=== PATIENT | female | born 1965 | race Caucasian/White ===

== ENCOUNTER 2016-06-29 20:28 | Emergency (ER) | payer BC ==
[~2016-06-29] VITALS: Ht 162.6 cm; Wt 44.7 kg
[2016-06-29 20:28] VITALS: BP 145/93; PULSE 90; RESP 16; TEMP 97.8; O2SAT 98; Ht 162.6 cm; Wt 44.7 kg
--- NOTE | 2016-06-29 20:45 | NUR ---
PROVIDER Cathy RUIZ SATELLITE MANAGER IN TO SEE PATIENT.
[2016-06-29] MEDS ORDERED: MONT10TA22 PO (21:02)
[2016-06-29] MEDS ORDERED: FLUT9.9S EA NOSTRIL (21:02)
[2016-06-29] MEDS ORDERED: LORA10TA62 PO (21:02)
[2016-06-29] MEDS ORDERED: ALBU6.7H INH (21:02)
--- NOTE | 2016-06-29 21:02 | ERPDOC ---
Departure Disposition Decision Date: Jun 29, 2016 Disposition Decision Time: 23:03 Disposition: 01 DISCHARGED HOME, SELF-CARE Impression Impression Impression: Primary Impression: Anxiety Additional Impression: Paranoia Severity: Moderate Condition: Stable Seen By: Mid-level only Patient Instructions: Anxiety (ED) Problems/Meds/Labs Reviewed?: Yes Medications reviewed and manag: Yes Additional Instructions: I do want you to call the admissions line tomorrow and talk with them about getting an assessment for admission. This does not mean that you will be admitted to [facility] tomorrow. They will do a screening exam and see what is the best option for you-counseling, admission, appointment with a Nurse Practitioner or psychiatrist and assist you with getting this set up. Your labs today are all in normal range. The admissions line number is [phone] and the number for the crisis line is if you have any other concerns specifically. Follow up care ordered?: Yes Mental Status: Alert HPI - Psychosocial General Chief Complaint: Psychiatric Problems Stated Complaint: CONFUSION Time Seen by MD: 20:45 Source: patient, family () Exam Limitations: no limitations HPI - Psychosocial Initial Comments She is brought to ER today by her jeison. He states that they are no longer but get along well and so they are close. He is concerned due to some recent behavior issues. I did speak with him with the consent of Brittany in the exam room. He states that over the last few weeks she has had some erratic behavior. He has been in [place] for his work and she has called him late at night and told him that she does not really think that he is in [place] and other things that dont really make sense. He also today was watching the basketball games and she had said to him that the games are not real. He was concerned enough about her behavior that he had a neighbor of theirs who is a psychiatrist come to the house and talk with her and the psychiatrist does feel that she needed to be evaluated. She states that she just got upset today and is not feeling appreciated. She feels like she overextends herself with her work and her kids. I did ask her how many hours a night she feels that she has slept over the last week. She is not able to answer this question. She states that she will get up at night if she thinks of something and call her ex and then get a drink and go back to bed. She does this often. He feels that she is not eating and that she has lost weight. She denies any known history of mental illness. Denies any medical c/o at this time. When asked if she is open to counseling or admission she does state that she would be open to talking with someone but not to admission to the hospital. When asked about why she had told her that she thinks that the basketball games on TV werent real she tells me because she had heard a [employer] advertisement on the radio last weekend and it is not close to [employer] and things like this happen. Occurred At: home Onset: Rapid Severity: moderate Associated Symptoms: anxiety, insomnia, DENIES: impaired concentration, ingestion, injury, suicidal ideation Hx of Similar Symptoms: No Allergies: Coded Allergies: aspirin (Verified Allergy, Unknown, 06/29/16) Past History Past Medical History Respiratory: asthma Surgical History Denies Surgeries Family History Family History: Negative Social History Smoking Status: Never smoker Substance Use Type: does not use Alcohol Intake: none Review of Systems Constitutional Constitutional: DENIES: chills, dizziness, fatigue, fever, weakness Eyes Vision: DENIES: blurring, double vision ENMT Ears: DENIES: drainage, pain Sinuses: DENIES: congestion, rhinorrhea Mouth/Throat: DENIES: painful swallowing, scratchy throat, sore throat Cardiovascular Cardiac: DENIES: chest pain, orthopnea Rhythm/Rate: DENIES: irregular beat, palpitations Pulmonary Respiratory: DENIES: cough, dyspnea, sputum, tachypnea GI Upper Abdomen: DENIES: nausea, pain, vomiting Lower Abdomen: DENIES: constipation, diarrhea, pain Integumentary Skin: DENIES: rash Neurological General: DENIES: headache, numbness, tingling, weakness Physical Exam General General Nourishment: well nourished, well developed, appears stated age, no acute distress, adult, thin General Body Habitus: well groomed Vitals and Pain First Documented Vital Signs Date Time Temp Pulse Resp B/P Pulse Ox O2 Delivery O2 Flow Rate FiO2 06/29/16 20:28 97.8 90 16 145/93 98 Room Air Weight: Kilograms: 44.700 Height (feet): 5 Height (inches): 4.00 Triage Pain Scale: RN VS reviewed by Provider: Yes Normal Exams: Neck: Full range of motion, without adenopathy, JVD, bruits or thyromegaly Chest/Resp: Clear all gr, with good airflow, and symmetry bilaterally CV: Regular rate and rhythm, without murmur or gallop, Pulses 2+ all extremities, capillary refill, <2 seconds all ext., no pedal edema noted Abdomen: Bowel sounds positive, soft, non-tender, non-distended, no hepatosplenomegaly, masses or bruits noted Lymphatic: No lymphadenopathy, or lymphedema noted Integumentary: No rashes, hives, or bruising noted Neurologic: Patient is alert, and oriented, cranial nerves, motor/sensory/ cerebellar, exams w/o gross deficits, to observation Psychiatric: Patient exhibits, appropriate attention, emotion and affect Differential Diagnoses Considering: Anxiety, Bipolar, Alcohol Intoxication, [place], Acute Psychosis Progress Results/Orders Orders Procedure Category Date Status Time Cbc W/Auto LAB 06/29/16 Complete Diff-Reflex Manual 20:58 Bmp - Basic Metabolic LAB 06/29/16 Complete Panel 20:58 Ethanol LAB 06/29/16 Complete 20:58 Drug Screen LAB 06/29/16 [place] [facility] [place] Acetaminophen LAB 06/29/16 Complete 20:58 Salicylate LAB 06/29/16 Complete 20:58 Ua, Dip Wreflex LAB 06/29/16 Complete [employer] 20:58 Tsh - Thyroid Stim LAB 06/29/16 Complete Hormone 20:58 Lab Results Laboratory Tests Test 06/29/16 21:34 06/29/16 21:38 06/29/16 21:59 Urine Collection Type Cleancatch-midstream Urine Color Yellow Urine Turbidity Clear Urine pH 5.5 Urine Specific [place] 1.025 Urine Protein Negative Urine Glucose (UA) Negative Urine Ketones 1+ Urine Blood Trace-intact Urine Nitrite Negative Urine Bilirubin Negative Urine Urobilinogen 0.2EU/DL Urine Leukocyte Esterase Negative Urinalysis Comment Microscopic not ind. Urine Opiates Screen NegativeNG/ML Urine Oxycodone Screen NegativeNG/ML Urine Methadone Screen NegativeNG/ML Urine Propoxyphene Screen NegativeNG/ML Urine Barbiturates Screen NegativeNG/ML Urine Tricyclic Antidepressants NegativeNG/ML Urine Phencyclidine Screen NegativeNG/ML Urine Amphetamines Screen NegativeNG/ML Urine Methamphetamines Screen NegativeNG/ML Urine Benzodiazepines Screen NegativeNG/ML Urine Cocaine Screen NegativeNG/ML Urine Cannabinoids Screen NegativeNG/ML White Blood Count 9.1T/MM3 Red Blood Count 4.94M/MM3 Hemoglobin 15.6GM/DL Hematocrit 45.6% Mean Corpuscular Volume 92.3UM3 Mean Corpuscular Hemoglobin 31.6UUG Mean Corpuscular Hemoglobin Concent 34.2GM/DL RDW Standard Deviation 40.8FL Platelet Count 257T/MM3 Mean Platelet Volume 11.3UM3 Immature Granulocyte % (Auto) 0.1% Neutrophils (%) (Auto) 78.7% Lymphocytes (%) (Auto) 15.7% Monocytes (%) (Auto) 4.8% Eosinophils (%) (Auto) 0.3% Basophils (%) (Auto) 0.4% Absolute Immature Granulocyte (auto 0.01T/MM3 Absolute Neutrophils (auto) 7.2T/MM3 Absolute Lymphocytes (auto) 1.4T/MM3 Absolute Monocytes (auto) 0.4T/MM3 Absolute Eosinophils (auto) 0.0T/MM3 Absolute Basophils (auto) 0.0T/MM3 Turbidity < 20 Sodium Level 142MEQ/L Potassium Level 4.5MEQ/L Chloride Level 105MEQ/L Carbon Dioxide Level 27MEQ/L Anion Gap 10MEQ/L Blood Urea Nitrogen 17.0MG/DL Creatinine 0.8MG/DL Glomerular Filtration Rate Calc 76 BUN/Creatinine Ratio 21RATIO Glucose Level 128MG/DL Calculated Osmolality 277MOSM/KG Calcium Level 10.1MG/DL Icterus Index < 2 Thyroid Stimulating Hormone (TSH) 1.28MIU/L Chemistry Specimen Hemolysis < 15 Salicylates Level < 1.0MG/DL Acetaminophen Level < 10UG/ML Alcohol, Quantitative <10MG/DL Lab Scanned Report REFERENCE [id number] Progress Progress CBC, BMP, and U/a today are clear. UDS is negative. TSH is in normal limits. Tox screen is negative as well. I did talk with Pedro with [facility] regarding patient' s symptoms and her 's concerns. He does recommend that patient call and ask to have an assessment done by the admission department tomorrow. They would be able to help patient best determine the route that would suite her the best. He does also recommend that she see her PCP soon this week to get started on some medication if this is what they need as this may be quicker than a medication visit with an [facility] SE[facility] or psychiatrist. I did give him both [facility] crisis line number and admission number to call tomorrow. ALONDRA RUIZ APRN Jun 29, 2016 21:02
--- NOTE | 2016-06-29 21:12 | NUR ---
STATUS PATIENT IS PACING THE ROOM. FAMILY X3 IS IN WITH PATIENT AND ARE TALKING TO PATIENT IN A CALM MANNER.
--- NOTE | 2016-06-29 21:30 | NUR ---
DRUG AND ALCOHOL COUNSELOR IN ROOM TO COLLECT LAB/UDS.
[2016-06-29 21:45] LABS: BASOPHILS % (AUTO) 0.4 % (0-2); EOSINOPHILS % (AUTO) 0.3 % (0-4); HCT - HEMATOCRIT 45.6 % (36-46); HGB - HEMOGLOBIN 15.6 GM/DL (12-16); IMMATURE GRANULOCYTE # (AUTO) 0.01 T/MM3 (0.00-0.03); IMMATURE GRANULOCYTE % (AUTO) 0.1 % (0.0-0.5); LYMPHOCYTES # (AUTO) 1.4 T/MM3 (1-4.8); LYMPHOCYTES % (AUTO) 15.7 % (23-45); MEAN CORPUSCULAR HGB 31.6 UUG (26-34); MEAN CORPUSCULAR HGB CONC(MCHC 34.2 GM/DL (31-37); MEAN CORPUSCULAR VOLUME 92.3 UM3 (80-100); MEAN PLATELET VOLUME 11.3 UM3 (9.4-12.4); MONOCYTES # (AUTO) 0.4 T/MM3 (0-0.8); MONOCYTES % (AUTO) 4.8 % (0-9.0); NEUTROPHILS #(AUTO)-ABSOLUTE 7.2 T/MM3 (1.8-7.7); NEUTROPHILS % (AUTO) 78.7 % (33-66); RED BLOOD COUNT 4.94 M/MM3 (4.00-5.20); WBC - WHITE BLOOD COUNT 9.1 T/MM3 (4.5-11.0)
[2016-06-29 21:46] LABS: BLOOD, URINE TRACE-INTACT (NEGATIVE); COLOR,URINE YELLOW (YELLOW); LEUKOCYTE ESTERASE ,URINE NEGATIVE (NEGATIVE); NITRITE,URINE NEGATIVE (NEGATIVE); UROBILINOGEN,URINE 0.2 EU/DL (NORMAL)
[2016-06-29 21:54] LABS: ACETAMINOPHEN < 10 UG/ML (10-30); ANION GAP 10 MEQ/L (5-15); BUN/CREATININE RATIO 21 RATIO (6-26); CALCIUM 10.1 MG/DL (8.4-10.2); CHLORIDE 105 MEQ/L (98-107); CO2 - CARBON DIOXIDE 27 MEQ/L (22-30); CREATININE 0.8 MG/DL (0.7-1.2); ETHANOL <10 MG/DL (<10); GLOMERULAR FILTRATION RATE 76; GLUCOSE 128 MG/DL (65-110); POTASSIUM 4.5 MEQ/L (3.6-5); SALICYLATE < 1.0 MG/DL (2-20); SODIUM 142 MEQ/L (134-144)
[2016-06-29 21:54] LABS: AMPHETAMINE SCREEN,URINE NEGATIVE; BARBITURATE SCREEN,URINE NEGATIVE; BENZODIAZEPINES SCREEN,URINE NEGATIVE; CANNABINOID SCREEN,URINE NEGATIVE; COCAINE SCREEN,URINE NEGATIVE; METHADONE SCREEN, URINE NEGATIVE; METHAMPHETAMINE SCREEN, URINE NEGATIVE; OPIATE SCREEN,URINE NEGATIVE; PHENCYCLIDINE SCREEN,URINE NEGATIVE; TRICYCLIC ANTIDEPRESSANT,URINE NEGATIVE
[2016-06-29 22:38] LABS: THYROID STIM HORMONE-TSH 1.28 MIU/L (0.47-4.68)
--- NOTE | 2016-06-29 22:39 | NUR ---
PROVIDER Cathy RUIZ MERCHANDISE HANDLER IN TO SEE PATIENT.
--- NOTE | 2016-06-29 23:12 | NUR ---
DEPARTURE PT COLLECTED BELONGINGS AND AMBULATED INDEPENDENTLY TO EXIT WITH FAMILY, GAIT STEADY.
== END 2016-06-29 23:12 | disposition home or self-care (01) ==
LOC: ED 20:28
DX: F22 Delusional disorders (principal); F41.9 Anxiety disorder, unspecified
CPT/HCPCS: 36415; 80048; 80306; 80307; 81003; 84443; 85025